=== PATIENT | female | born 1950 | race Caucasian/White ===

== ENCOUNTER 2017-02-22 22:39 | Inpatient (IN) ==
[2017-02-22] MEDS ORDERED: ASPIRIN PO STA (22:48)
[2017-02-22 23:15] LABS: BASO% 0.8 % (0.0-0.8); EOS# 0.11 X1000 (0.0-0.7); EOS% 1.3 % (0.0-10.0); HEMATOCRIT 35.3 % (37.0-47.0); HEMOGLOBIN 10.9 g/dL (12.0-16.0); LYMPH# 2.06 X1000 (1.2-3.4); LYMPH% 24.9 % (20.5-51.1); MANUAL DIFF NEEDED? NO; MCH 24.6 PG (27-31); MCHC 30.9 g/dL (33-37); MCV 79.7 FL (81-99); MONO# 0.69 X1000 (0.11-0.59); MONO% 8.3 % (1.7-9.3); MPV 9.7 FL (7.4-10.4); NEUT% 64.7 % (42.2-75.2); PLT 226 X1000 (130-400); RBC 4.43 XMIL (4.2-5.4)
--- NOTE | 2017-02-22 23:21 | PROVIDER DOCUMENTATION ---
HPI-Cardiac General - General Chief Complaint: Shortness of Breath Stated Complaint: SOB Time Seen by Provider: 02/22/17 23:08 Source: patient (started getting sob while making cookies then chest pain from shoulderblade and into neck and ear pain and arm pain top her fingers 2/5 in the middle,was hyperventilating) Allergies/Adverse Reactions: Patient Allergies Allergy/AdvReac Type Severity Reaction Status Date / Time Penicillins Allergy RASH Verified 01/06/15 10:38 Home Medications: Home Medication List Medication Instructions Recorded Confirmed Last Taken Type Cholecalciferol (Vit D3) [Vitamin 4,000 unit PO DAILY 03/10/14 01/06/15 09:00 History D3] Metoprolol Succinate E.r. [Toprol 25 mg PO DAILY 03/10/14 01/06/15 03/10/14 09: 00 History Xl] Trazodone [Desyrel] 50 mg PO QHS 03/10/14 01/06/15 03/09/14 22:00 History Cyclobenzaprine [Flexeril] 10 mg PO DAILY PRN 06/22/14 01/06/15 Unknown History Gabapentin [Neurontin] 600 mg PO BID 06/22/14 01/06/15 Unknown History Ciprofloxacin HCl [Cipro] 500 mg PO BID #14 tablet 01/06/15 Unknown Rx Oxycodone HCl/Acetaminophen 1 each PO Q4-6H PRN PRN 01/06/15 01/06/15 Unknown History [Percocet 5-325 mg Tablet] Phenazopyridine HCl [Pyridium] 200 mg PO BID #14 tablet 01/06/15 Unknown Rx - History of Present Illness-Cardiac Location: reports: central, shoulder Quality of Pain: reports: pressure, stabbing Severity in ED: severe Onset/Duration: 1-3 hours ago Timing: improving Context/Activities at Onset: reports: light activity Modifying Factors: worse with: breathing History of arrythmia: reports: SVT Recent use of:: reports: no stimulants. denies: caffeine, decongestant, cocaine , amphetamine Nitro Today/Relief: denies: 0.4 mg x 3, provided by EMS Aspirin Treatment Today: reports: 81 mg x 3, 325 mg x 1, provided by EMS, provided by ED Prior Chest Pain/Cardiac Workup: reports: cardiolite scan, echocardiography ( all was good 2 weeks) Associated Symptoms: reports: dizziness, shortness of breath. denies: diaphoresis, edema, fever/chills, heartburn, nausea, vomiting Similar Symptoms Previously?: No Recently Seen Here or By Another Healthcare Provider: No Review of Systems - Adult - REVIEW OF SYSTEMS - ADULT Constitutional: denies: chills, fever, night sweats, weight gain, weight loss Eyes: denies: decreased vision, blurred vision, double vision Ears, Nose, Mouth & Throat: denies: ear discharge, epistaxis, sinus problem, hoarseness, throat pain, throat swelling Cardiovascular: reports: see HPI Respiratory: reports: see HPI, dyspnea on exertion, shortness of breath. denies : chronic cough, cough, hemoptysis, wheezing Gastrointestinal: denies: hematemesis, constipation, diarrhea, difficulty swallowing, frequent heartburn, nausea, rectal bleeding, vomiting Genitourinary: denies: dysuria, discharge, frequency, hematuria, hesitency, incontinence Musculoskeletal: reports: back pain, joint pain, joint swelling Integumentary: reports: no symptoms reported Neurological: reports: no symptoms reported. denies: numbness, paresthesia, seizure, slurred speech, syncope Endocrine: denies: cold intolerance, heat intolerance Hematologic/Lymphatic: reports: easy bruising, low blood count. denies: blood clots Allergic/Immunologic: reports: asthma, hay fever Past History - Adult - PAST MEDICAL HISTORY-ADULT Review of Records: reports: Nursing Assessment Review, Medications Reviewed, Social history reviewed & non-contributory. Cardiovascular: reports: arrhythmia, HTN, palpitations, other (TACHYCARDIA) Respiratory: reports: asthma. denies: COPD Gastrointestinal: denies: diverticulosis, GERD, GI bleed, hepatitis, hemorrhoids , inflammatory bowel disease, pancreatitis, ulcer Genitourinary: reports: kidney stones. denies: dialysis, incontinence, polycystic kidney disease, retention Musculoskeletal: reports: chronic pain Neurological: denies: CVA, dementia, Seizures/Epilepsy Psychiatric: denies: anxiety, bipolar, depression Endocrine/Immune: denies: thyroid disorder - PRIOR SURGERIES/PROCEDURES Surgical/Procedure History: reports: cholecystectomy, orthopedic (extremity) ( knee, ankle), gastric bypass, other (LEFT ANKLE) Physical Exam-General - PHYSICAL EXAM-ADULT Initial Vital Signs Reviewed: Yes - CONSTITUTIONAL General Appearance: appears well - EYES Eyes: PERRL/EOMI, pink conjunctivae - HEAD, EARS, NOSE, MOUTH & THROAT HENMT: normocephalic/atraumatic, moist mucous membranes, normal ENT inspection - NECK Neck: non-tender, full range of motion, supple - RESPIRATORY Respiratory: lungs clear, normal breath sounds - CARDIOVASCULAR Cardiovascular: normal peripheral pulses, regular rate, rhythm - GASTROINTESTINAL (ABDOMEN) Abdominal Exam: normal bowel sounds, non tender, soft - LYMPHATIC Lymphatic: no adenopathy - MUSCULOSKELETAL Back Exam: normal inspection, no CVA tenderness, no vertebral tenderness Extremity: normal range of motion, non-tender, normal gait Peripheral Pulses: dorsalis-pedis (R): 2+, dorsalis-pedis (L): 2+ - SKIN Integumentary: normal color, normal turgor - NEUROLOGIC Neurologic: grossly normal - PSYCHIATRIC Psych/Mental Status: oriented x 3 Progress - PLAN OF CARE/RESULTS Progress/Plan/Lab Results: Vital Signs - 8 hr 02/22/17 22:39 Pulse Rate 68 Respiratory Rate 20 Blood Pressure 174/100 O2 Sat by Pulse Oximetry 94 L Laboratory Results - last 24 hr 02/22/17 02/22/17 02/22/17 23:05 23:05 23:05 WBC RBC Hgb Hct MCV MCH MCHC RDW Std Deviation Plt Count MPV Immature Gran % (Auto) Neut % (Auto) Lymph % (Auto) Allen % (Auto) Eos % (Auto) Baso % (Auto) Immature Gran # (Auto) Neut # (Auto) Lymph # (Auto) Allen # (Auto) Eos # (Auto) Baso # (Auto) PT INR APTT (Factor Assay) D-Dimer Sodium 137 Potassium 4.0 Chloride 102 Carbon Dioxide 22 L Anion Gap 13 BUN 16 Creatinine 0.5 Estimated GFR/1.73 m2 > 60 BUN/Creatinine Ratio 32 Glucose 96 Calculated Osmolality 275 Calcium 8.6 L Magnesium 2.1 Total Bilirubin 0.30 AST 21 ALT 11 Alkaline Phosphatase 99 Creatine Kinase 78 Troponin T < 0.010 Xho-H-Lxzhkjyejef Pept 306 Total Protein 6.2 L Albumin 3.7 Globulin 3.0 Albumin/Globulin Ratio 1.0 02/22/17 02/22/17 23:05 23:05 WBC 8.27 RBC 4.43 Hgb 10.9 L Hct 35.3 L MCV 79.7 L MCH 24.6 L MCHC 30.9 L RDW Std Deviation 22.9 H Plt Count 226 MPV 9.7 Immature Gran % (Auto) 0.0 Neut % (Auto) 64.7 Lymph % (Auto) 24.9 Allen % (Auto) 8.3 Eos % (Auto) 1.3 Baso % (Auto) 0.8 Immature Gran # (Auto) 0.00 Neut # (Auto) 5.34 Lymph # (Auto) 2.06 Allen # (Auto) 0.69 H Eos # (Auto) 0.11 Baso # (Auto) 0.07 PT 13.1 INR 0.96 APTT (Factor Assay) 32.0 D-Dimer 3.12 H Sodium Potassium Chloride Carbon Dioxide Anion Gap BUN Creatinine Estimated GFR/1.73 m2 BUN/Creatinine Ratio Glucose Calculated Osmolality Calcium Magnesium Total Bilirubin AST ALT Alkaline Phosphatase Creatine Kinase Troponin T Rjs-I-Phravryrwdd Pept Total Protein Albumin Globulin Albumin/Globulin Ratio Orders Category Date Time Status Admit - [facility] Routine AdmDCTranf 02/23/17 01:58 Ordered Activity - Bed Rest with BRP ORDERED Care 02/23/17 01:58 Active Call Admitting on Arrival AT ADMISSION Care 02/23/17 01:59 Active Cardiac Monitoring DIRECTED Care 02/22/17 22:48 Active Oxygen Therapy- ED Nursing DIRECTED Care 02/22/17 22:48 Active Resuscitation Status Routine Care 02/23/17 01:58 Ordered Saline Loc NOW Care 02/22/17 22:48 Active Vital Signs Order ROUTINE Care 02/23/17 01:58 Active Heart Healthy Diet Diet 02/23/17 02:00 Active ANGIOGRAM/PULMONARY ARTERIES [CT] Stat Exams 02/23/17 00:12 Taken CHEST-2 VIEWS [RAD] Stat Exams 02/22/17 22:48 Taken CBC WITH ELECTRONIC DIFF [HEME] Stat Lab 02/22/17 23:05 Completed CK PROFILE [SP CHEM] Stat Lab 02/22/17 23:05 Completed COMPREHENSIVE METABOLIC PANEL [CHEM] Stat Lab 02/22/17 23:05 Completed D-DIMER PL [COAG] Stat Lab 02/22/17 23:05 Completed MAGNESIUM [CHEM] Stat Lab 02/22/17 23:05 Completed PRO B-NATRIURETIC PEPTIDE Stat Lab 02/22/17 23:05 Com[address]IME WITH INR PL [COAG] Stat Lab 02/22/17 23:[address] [COAG] Stat Lab 02/22/17 23:05 Completed TROPONIN T Stat Lab 02/22/17 23:05 Completed 0.9% Sodium Chloride Inj [Ns] 1,000 ml Med 02/23/17 01:58 Discontinued IV KVO Aspirin Med 02/22/17 22:48 Discontinued 325 mg PO STAT STA Enoxaparin 1 mg/kg [Lovenox 1 mg/kg] Med 02/23/17 01:54 Discontinued 1 each SUBQ NOW ONE Hydrocodone/APAP 10 mg/325 mg [[place]-10] Med 02/23/17 01:56 Discontinued 1 each PO NOW ONE Ketorolac [Toradol] Med 02/23/17 00:42 Discontinued 60 mg .ROUTE .STK-MED ONE Ketorolac [Toradol] Med 02/23/17 00:48 Discontinued 60 mg IM NOW ONE Morphine Med 02/23/17 01:58 Active 2 mg IV Q2H PRN PRN Ondansetron [Zofran] Med 02/23/17 01:58 Active 4 mg IV Q4H PRN PRN Oxygen Device Routine Oth 02/23/17 01:59 Active Telemetry [OM.EQ] Routine Oth 02/23/17 01:58 Active EKG [EKG] Stat Ther 02/22/17 22:48 Ordered Transfer/Admit Order [TRANSFER] Routine Transfer 02/23/17 02:03 Ordered Result Diagrams: 02/22/17 23:05 02/22/17 23:05 - CONSULTS/PCP/HOSPITALIST Notification #1 *Consult/PCP/Hospitalist*: Dr. Luna (Hospitalist) Time Discussed: 02:06 Reason/Comments: Dr. Irving spoke c Dr. Luna. Departure - Departure Time of Disposition Decision: 02:06 DIAGNOSIS: Pulmonary emboli Qualifiers: Pulmonary embolism type: other Chronicity: unspecified Acute cor pulmonale presence: without acute cor pulmonale Qualified Code(s): I26.99 - Other pulmonary embolism without acute cor pulmonale Disposition: ADMITTED INPATIENT 09 Certified Medical Emergency: Emergent Condition: Stable - Critical Care Note This patient required my direct & personal management of CC.: No Attestation - Physician/ NICOLASA Attestation Patient care was provided by Advanced Practice Provider:: Yes Advanced Practice Provider:: Alexandre Philip Advanced Practice Provider documentation review:: The Mid-level provider documentation, treatment plan and medical decision making was reviewed by the physician who agrees with all treatment and medical decision making by the MLP.
[2017-02-22 23:32] LABS: INR 0.96 (0.86-1.15); PROTIME 13.1 Seconds (12.1-15.5)
[2017-02-22 23:35] LABS: AGAP 13; ALBUMIN 3.7 g/dL (3.5-5.0); ALKALINE PHOSPHATASE 99 U/L (32-104); BUN 16 mg/dL (8-22); CALCIUM 8.6 mg/dL (8.8-10.2); CHLORIDE 102 mmol/L (98-107); CK PROFILE 78 U/L (24-173); COSMO 275; GOT 21 U/L (10-30); GPT 11 U/L (10-36); MAGNESIUM 2.1 mg/dL (1.5-2.7); SODIUM 137 mmol/L (136-145); TCO2 22 mmol/L (25-35); TOTAL PROTEIN 6.2 g/dL (6.3-8.3)
[2017-02-23] MEDS ORDERED: TORADOL ONE (00:42)
[2017-02-23] MEDS ORDERED: TORADOL IM ONE (00:48)
[2017-02-23] MEDS ORDERED: LOVENOX 1 MG/KG SUBQ ONE (01:54)
[2017-02-23] MEDS ORDERED: NORCO-10 PO ONE (01:56)
[2017-02-23] MEDS ORDERED: MORPHINE IV PRN ×2 (01:58→06:37)
[2017-02-23] MEDS ORDERED: ZOFRAN IV PRN (01:58)
[2017-02-23] MEDS ORDERED: NS 1,000 ML IV ONE (01:58)
--- NOTE | 2017-02-23 02:09 | ED EKG INTERP ---
This chart was entered by Eleni Ram Scribe, acting as scribe for Angus Irving MD. EKG Interpretation - EKG Time of EKG reading by physician:: 22:45 EKG Read and Signed by:: Angus Irving EKG Interpretation (*Must complete 3 of following elements*): Normal Rate: 70 Rhythm: NSR [place]: normal This chart was documented by the indicated scribe, (Eleni Ram Scribe) and accurately reflects the services I performed and decisions made by me, Angus Irving MD, as attested by the provider's signature.
[2017-02-23] MEDS ORDERED: LOVENOX ONE (02:42)
--- NOTE | 2017-02-23 07:50 | Diag Imaging Result Doc PS360 ---
EXAM: ANGIOGRAM/PULMONARY ARTERIES - 02/23/2017 HISTORY: chest pain TECHNIQUE: With intravenous contrast. Axial and coronal MIP images obtained. Dose reduction protocol. COMPARISON: 03/10/2014 FINDINGS: There are scattered filling defects and bilateral pulmonary arteries are consistent with pulmonary emboli. The pulmonary emboli are small to medium size. There is no large central pulmonary embolus identified. There is a calcified granuloma from old granulomas disease of the right lower lobe. There is no consolidation, pleural effusion, or pneumothorax identified. There is ectasia of the ascending aorta up to 4 cm. There are postsurgical changes of the gastroesophageal junction. There is chronic elevation of the left hemidiaphragm. There is mild fullness of the right adrenal gland which may relate to hyperplasia or small adenoma. IMPRESSION: Bilateral pulmonary emboli. The camera person radiologist provided preliminary results at 1:52 AM on 02/23/2017. Electronically signed by Moris Rene 02/23/2017 7:48 AM
--- NOTE | 2017-02-23 08:40 | Diag Imaging Result Doc PS360 ---
EXAM: CHEST-2 VIEWS - 02/22/2017 HISTORY: CP TECHNIQUE: Chest two views COMPARISON: 01/26/2017 FINDINGS: Heart size is normal. Inspiration is somewhat shallow. The lungs appear clear. There is no pleural effusion or pneumothorax seen. There is exaggerated lower thoracic kyphosis noted. IMPRESSION: Somewhat shallow inspiration. No other evidence of acute disease. Please see report of subsequent CT pulmonary angiogram for further evaluation of the chest. Electronically signed by Moris Rene 02/23/2017 8:38 AM
[2017-02-23] MEDS ORDERED: FLEXERIL PO PRN (09:09)
[2017-02-23] MEDS: LOVENOX SUBQ SCH ×2 (10:02→20:16)
[2017-02-23] MEDS: ANTIVERT PO SCH (10:03)
[2017-02-23] MEDS: TOPROL XL PO SCH (10:03)
[2017-02-23] MEDS: NEURONTIN PO SCH ×2 (10:03→20:09)
[2017-02-23] MEDS: CELEBREX PO SCH (10:04)
--- NOTE | 2017-02-23 10:22 | EKG Report ---
Test Performed on : 02/22/2017 10:45:10 PM Test Reason : CODE Blood Pressure : / mmHG Vent. Rate : 070 BPM Atrial Rate : 070 BPM P-R Int : 174 ms QRS Dur : 086 ms QT Int : 404 ms P-R-T Axes : 034 019 042 degrees QTc Int : 436 ms Normal sinus rhythm. Normal ECG When compared with ECG of 22-FEB-2017 22:44, (Unconfirmed) No significant change was found Unconfirmed Result
--- NOTE | 2017-02-23 11:02 | HISTORY AND PHYSICAL ---
PRIMARY CARE PHYSICIAN: Dr. Cruz. CHIEF COMPLAINT: Shortness of breath that has progressively worsened over the past 2 weeks, now with some chest pain in the shoulder blades with pressure stabbing discomfort. HISTORY OF PRESENTING ILLNESS: This is a 66-year-old female, who presents to [facility] ER with complaints of a 2-week history of shortness of breath that had progressively worsened. States that approximately 2 weeks ago she saw her sanitation worker cleaning equipment, Dr. Rod in [place], and he did a chemically-induced stress test and an echocardiogram that was essentially negative according to the patient. States that yesterday she began having some worsening shortness of breath, chest pain that radiated through to her shoulder blade. Stated that the chest pain felt like pressure and stabbing and caused some dizziness. Workup in the ER showed a D-dimer of 3.12. A pulmonary arteriogram was obtained that showed bilateral pulmonary emboli. The patient states that she has not had any recent travels, is not on any hormone replacement therapy and has never smoked. So she has been admitted to the intensive care unit for further evaluation and treatment. PAST MEDICAL HISTORY: SVT, hypertension, asthma, chronic pain. PAST SURGICAL HISTORY: Cholecystectomy, gastric bypass, and a left ankle surgery. FAMILY HISTORY: Noncontributory. SOCIAL HISTORY: She currently lives alone. Denied any tobacco, alcohol, or illicit drug use. ALLERGIES: Penicillin. HOME MEDICATIONS: 1. Celebrex 200 mg p.o. daily. 2. Flexeril 10 mg p.r.n. 3. Neurontin 600 mg p.o. b.i.d. 4. [place] 7.5 one p.o. t.i.d. p.r.n. 5. Antivert 25 mg two tablets p.o. b.i.d. 6. Toprol 25 mg at bedtime and 50 mg q.a.m. 7. Desyrel 50 mg p.o. at bedtime. LABORATORY DATA: Showed a white blood cell count of 8.27, hemoglobin at 10.9, hematocrit 35.3, platelets 226. PT and INR of 13.1 and 0.96 with a D-dimer of 3.12. Sodium 137 , potassium 4.0, chloride 102, CO2 22, BUN of 16, creatinine 0.5, glucose of 96, magnesium 2.1. Creatine kinase was 78. Troponin less than 0.010. ProBNP of 306. DIAGNOSTIC DATA: Pulmonary arteriogram showed bilateral pulmonary emboli. Chest x-ray showed no evidence of an acute disease. REVIEW OF SYSTEMS: She denied any fever, chills, blurred vision. She was positive for dizziness, shortness of breath, chest pain radiating through to her shoulder blade. Denied any cough, constipation, diarrhea, abdominal pain, nausea, vomiting, or burning or hurting with urination. PHYSICAL EXAMINATION: VITAL SIGNS: On arrival, she had a temperature of 98 degrees, pulse 68, respirations 20, blood pressure was 174/100, satting 94% on room air. GENERAL: This is a 66-year-old female, who is lying in the bed and answers questions appropriately. HEENT: Normocephalic and atraumatic. Pupils are equal, round, and reactive to light. Extraocular movements are intact. The oropharynx and nares are clear. NECK: Supple. LUNGS: Clear to auscultation bilaterally with equal lung expansion and chest wall movement. HEART: With regular rate and rhythm. No murmurs, rubs, or gallops. ABDOMEN: Soft, nontender, nondistended. Bowel sounds are present x4 quadrants. EXTREMITIES: There is no clubbing, cyanosis, or edema. NEUROLOGIC: The cranial nerves 2-12 are grossly intact. ASSESSMENT: 1. Bilateral pulmonary emboli. 2. Hypertension. 3. Chronic pain. PLAN: She has been admitted to the intensive care unit. Placed on telemetry. O2 per protocol. Placed on a healthy heart diet. Will obtain bilateral lower extremity venous Doppler mostly just to clarify if possibly the clots could have started in the legs and went to the lung as she has no significant history or calls for what the bilateral pulmonary emboli would be related to. Will also do a hypercoagulable workup, a carotid ultrasound. We will continue her home medications, place her on Lovenox 1 mg/kg subcutaneous q. 12 hours. Then, we will check insurance and convert her to something by mouth that is affordable for her starting in the a.m. She is a full code. Dictated by TREY Gonzalez for Tim Luna MD cc: TREY Gonzalez MD Michael C. Donham, MD MTDD
--- NOTE | 2017-02-23 15:20 | Extremity Venous Study ---
EXAM: Carotid Ultrasound - 02/23/2017 HISTORY: PE TECHNIQUE: Carotid flow studies COMPARISON: None. FINDINGS: There is no substantial atherosclerotic plaque identified in the right carotid system. Maximal systolic velocity in the right internal carotid artery is 75 cm/s, and maximum end-diastolic velocity is 23 cm/s. The right internal to common carotid artery systolic velocity ratio is 1.12. The flow velocities and ratios are consistent with 0-39% stenosis in the right internal carotid artery. The right vertebral artery demonstrates antegrade flow. There is atherosclerotic plaquing in the left carotid system is most prominent at the carotid bulb and proximal internal carotid artery. Maximal systolic velocity in the left internal carotid artery is 77 cm/s, and maximum end-diastolic velocity is 19 cm/s. The left internal to common carotid artery systolic velocity ratio is 1.0. The flow velocities and ratios are consistent with 0-39% stenosis in the left internal carotid artery. The left vertebral artery demonstrates antegrade flow. IMPRESSION: No substantial abnormality identified in the right carotid system. Atherosclerotic plaquing on the left which is most prominent at the carotid bulb and proximal internal carotid artery. The flow velocities and ratios are consistent with less than 40% stenosis in the left internal carotid artery. Electronically signed by Moris Rene 02/23/2017 3:18 PM
--- NOTE | 2017-02-23 16:13 | Extremity Venous Study ---
EXAM: Venous U/S Bilateral Legs - 02/23/2017 HISTORY: PE TECHNIQUE: Bilateral lower extremity Doppler venous ultrasound COMPARISON: None. FINDINGS: The deep veins of the right lower extremity demonstrate flow and compressibility. There are no filling defects identified in the right lower extremity deep veins. There is apparent filling defect in the left proximal superficial femoral vein with lack of complete compressibility of the vein. This is suspicious for nonocclusive thrombus. The remainder of the deep veins of left lower extremity demonstrate flow compressibility. There are no other filling defects identified. IMPRESSION: No evidence of right lower extremity deep venous thrombosis. Evidence of nonocclusive thrombus in the left proximal superficial femoral vein. Electronically signed by Moris Rene 02/23/2017 4:11 PM
[2017-02-23 19:04] LABS: URINE CULTURE PL NEEDED? NO
[2017-02-23 19:18] LABS: BILIRUBIN URINE NEGATIVE (NEGATIVE); BLOOD URINE NEGATIVE (NEGATIVE); CLARITY CLEAR (CLEAR); COLOR YELLOW; GLUCOSE URINE NEGATIVE (NEGATIVE); LEUKOCYTES URINE TRACE (NEGATIVE); NITRITE URINE NEGATIVE (NEGATIVE); PROTEIN URINE NEGATIVE (NEGATIVE); UROBILINOGEN URINE 1+(1 mg/dL)
[2017-02-23 19:19] LABS: URINE EPITHELIAL CELLS <10 /HPF (<10); URINE SOURCE CLEAN CATCH; URINE WBC <10 /HPF (<10)
[2017-02-23] MEDS: NORCO-7.5 PO PRN (20:10)
[2017-02-23] MEDS ORDERED: TOPROL XL PO SCH (21:00)
[2017-02-23] MEDS ORDERED: ANTIVERT PO SCH (21:00)
[2017-02-23] MEDS ORDERED: DESYREL PO SCH (21:00)
[2017-02-24] MEDS ORDERED: XARELTO PO SCH (08:30)
[2017-02-24] MEDS: ANTIVERT PO SCH (09:08)
[2017-02-24] MEDS: CELEBREX PO SCH (09:08)
[2017-02-24] MEDS: NEURONTIN PO SCH (09:09)
[2017-02-24] MEDS: TOPROL XL PO SCH (09:09)
[2017-02-24] MEDS: NORCO-7.5 PO PRN (09:14)
[2017-02-24 12:30] VITALS: BP 122/64
--- NOTE | 2017-02-24 16:55 | DISCHARGE SUMMARY ---
ADMISSION DATE: 02/23/2017 DISCHARGE DATE: 02/24/2017 PRIMARY CARE PHYSICIAN: Angus Cruz MD. ADMISSION DIAGNOSES: 1. Bilateral pulmonary emboli. 2. Hypertension. 3. Chronic pain. DISCHARGE DIAGNOSES: 1. Bilateral pulmonary emboli. 2. Hypertension. 3. Chronic pain. 4. Left lower extremity deep vein thrombus. SUMMARY OF FINDINGS: This is a 66-year-old, female who presented to the ER with complaints of a 2-week history of shortness of breath that progressively worsened. She states that she had seen her vessel manager, Dr. Rod, in [place] approximately 2 weeks ago and he did a chemically induced stress test and an echocardiogram that was essentially negative according to the patient. She stated yesterday, on the day prior to arrival, she began having some worsening shortness of breath and chest pain that radiated through to her shoulder blade. She stated the chest pain felt like pressure and stabbing, and caused some dizziness. Workup in the ER showed a D-dimer of 3.12. Pulmonary arteriogram was obtained and showed bilateral pulmonary emboli. We did a lower extremity venous Doppler and she was found to have a left DVT and it was noted that she had not had any recent travel, not on any hormone replacement therapy and has never smoked. She was admitted to the Intensive Care Unit and placed on Lovenox 1 mg/kg subcutaneous q.12 hours. She has done well. Her shortness of breath has subsided. We checked her insurance to start her on Xarelto and she is able to afford that, so she will be on Xarelto 15 mg 1 b.i.d. for 3 weeks #42 with no refills, and then she will be on Xarelto 20 mg 1 p.o. daily #30 with 6 refills. HOME MEDICATIONS: She will continue her home medications: 1. Celebrex 200 mg p.o. daily. 2. Neurontin 600 mg p.o. b.i.d. 3. Flexeril 10 mg p.o. daily p.r.n. 4. Gabapentin 600 mg p.o. b.i.d. 5. [place] 7.5, 1 p.o. t.i.d. 6. Antivert 25 mg p.o. q. p.m. and 2 tablets p.o. q.a.m. 7. Metoprolol 25 mg p.o. at bedtime and 50 mg p.o. q.a.m. 8. Trazodone 50 mg p.o. at bedtime. 9. Voltaren gel 1% topically 3 times daily as needed. 10. Lexapro 10 mg p.o. daily. 11. Ferrous fumarate 324 mg p.o. daily. 12. Robaxin 750 mg p.o. p.r.n. FOLLOWUP: She will follow up with her primary care in 1-2 weeks and call his office for an appointment. DISCHARGE TIME: 35 minutes. Dictated by TREY Gonzalez for Tim Luna MD cc: TREY Gonzalez MD Michael C. Donham, MD
== END 2017-02-24 14:40 | disposition home or self-care (01) ==
LOC: P.ED 22:39 → P.ICU 02-23 02:38 → SUATTDRO 02-23 02:38
PROVIDERS: ATTEND Family Medicine